=== PATIENT | male | born 1980 | race Caucasian/White ===

== ENCOUNTER 2018-02-07 16:45 | Emergency (ER) | payer SELFPAY ==
[2018-02-07] MEDS ORDERED: TETRACAIN/EPI/LIDO GEL 3ML SYR TP ONE (16:55)
[2018-02-07] MEDS ORDERED: DIPHTH/TETANUS/ACEL. PERTUSSIS IM ONLY ONE (16:55)
--- NOTE | 2018-02-07 17:01 | ER Report ---
History and Physical Time Seen By MD: 16:55 Hx. of Stated Complaint: patient was doing pull-ups in his home. he fell and landed on the top of his head HPI/ROS CHIEF COMPLAINT: laceration to top of head HISTORY OF PRESENT ILLNESS: PT was doing pull ups on a pull up bar that he put into a door frame. The pull up bar and the door frame came down on the patient and he fell onto the ground. Pt with Hematoma and laceration on top of his head. no loc. no headache. Pt does c/o of some soreness to his neck when asked. no arm weakness or numbness. pt ambulatory. pt tetnus shot was 7 yrs ago. REVIEW OF SYSTEMS: Constitutional: No fever, no chills. Eyes: No discharge. ENT: No sore throat. Cardiovascular: No chest pain, no palpitations. Respiratory: No cough, no shortness of breath. Gastrointestinal: No abdominal pain, no vomiting. Genitourinary: No hematuria. Musculoskeletal: No back pain, + neck lateral tenderness Skin: + head lac Neurological: No headache, no numbness, no weakness, no loc Allergies: Coded Allergies: No Known Drug Allergies (Unverified , 02/07/18) Home Meds No Active Prescriptions or Reported Meds Past Medical/Surgical History Pt denies any past medical or surgical hx Reviewed Nurses Notes: Yes Hx Substance Use Disorder: No Hx Alcohol Use: Yes (occ.) Constitutional Vital Sign - Last 24 Hours 02/07/18 02/07/18 02/07/18 02/07/18 16:46 16:50 17:00 17:30 Temp 98.0 Pulse 95 Resp 20 B/P (MAP) 126/94 (105) 126/94 107/72 (84) 110/85 (93) Pulse Ox 95 O2 Delivery Room Air Physical Exam General Appearance: The patient is alert, has no immediate need for airway protection and no signs of toxicity. Eyes: Pupils equal and round no pallor or injection, EOMI ENT: no pharyngeal erythema or exudates, Mucous membranes are moist, TM are nl b/l no hemotympanums Respiratory: There are no retractions, lungs are clear to auscultation. Cardiovascular: Regular rate and rhythm. pulses are equal and symmetrical Gastrointestinal: Abdomen is soft and non tender, no masses, bowel sounds normal, no guarding, no rigidity or rebound Neurological: Cranial nerves II-XII grossly intact, no sensory or motor loss Skin: Warm and dry, + 2cm x 1cm hematoma on top of head with laceration that is starred total of 3cm Musculoskeletal: Neck is non tender midline with some "soreness left lateral with palpation to trapezius, remainder of vertebtral spine also non tender. Extremities are nontender, non swollen and have full range of motion. DIFFERENTIAL DIAGNOSIS: After history and physical exam differential diagnosis was considered for laceration, concussion, cervical strain, muscles strain burst fx Medical Decision Making ED Course/Re-evaluation ED Course Wound was irrigated with NSS LET was applied as topical then 1% lidocaine with epi 2ml Wound closed using surgical garland 7 total Decision to Disposition Date: Feb 07, 2018 Decision to Disposition Time: 17:52 Depart Departure Latest Vital Signs Vital Signs Date Time Temp Pulse Resp B/P (MAP) Pulse Ox O2 Delivery O2 Flow Rate FiO2 02/07/18 17:30 110/85 (93) 02/07/18 16:50 98.0 95 20 95 Room Air Impression: Primary Impression: Laceration of head Condition: Improved Disposition: HOME OR SELF-CARE New Scripts No Active Prescriptions or Reported Meds Patient Instructions: Staple Care (GEN) Additional Instructions: You have 7 garland which need to be removed in 12 days. You can do that at your family doctor, urgent care or the emergency room. Return sooner for any concerns. Your neck xrays did not see any fractures but you do have some arthritis. Motrin/tylenol as needed for pain. Problem Qualifiers Primary Impression: Laceration of head Encounter type: initial encounter Location of open wound of head: scalp Foreign body presence: without foreign body Qualified Codes: S01.01XA - Laceration without foreign body of scalp, initial encounter CHITO LEROY DO Feb 07, 2018 17:00
[2018-02-07 17:30] VITALS: BP 110/85
--- NOTE | 2018-02-07 17:34 | RADIOLOGY IMAGING REPORT ---
FACILITY: [facility] PATIENT NAME: Fabrizio Zaman : 1980 MR: [id number] V: [id number] EXAM DATE: ORDERING PHYSICIAN: CHITO LEROY TECHNOLOGIST: Location: [facility] Patient: Fabrizio Zaman : 1980 Visit/Account:[id number] Date of Sevice: 02/07/2018 EXAMINATION: Cervical spine radiographs 3 views HISTORY: Hit top of his head, neck pain. COMPARISON: None. FINDINGS: AP, lateral and 2 odontoid views of the cervical spine are obtained. Bones: Cervical spine is adequately visualized through the cervicothoracic junction. No acute fractu re or dislocation. Disc spaces: Mild disc space narrowing and endplate sclerosis at C5-6. Posterior elements: Mild uncovertebral and facet hypertrophy at C5-6. Alignment: There is straightening of the cervical spine with grade 1 retrolisthesis at C5-6 measurin g 2 mm. Hardware: None. Soft tissues: Negative. Visualized lung apices: Negative. IMPRESSION: 1. No acute fracture of the cervical spine. 2. Mild degenerative disc disease, facet and uncovertebral arthropathy at C5-6. 3. Grade 1 degenerative retrolisthesis at C5-6. Report Dictated By: Jailene Rangel MD at 02/07/2018 5:29 PM Report E-Signed By: Jailene Rangel MD at 02/07/2018 5:31 PM [id number]
== END 2018-02-07 17:47 | disposition home or self-care (01) ==
LOC: ER 17:02
DX: S01.01XA Laceration without foreign body of scalp, initial encounter (principal)
CPT/HCPCS: 72040; 90471; 90715; 99283

== ENCOUNTER 2018-02-24 15:39 | Emergency (ER) | payer SELFPAY ==
[2018-02-24] MEDS ORDERED: CYCLOBENZAPRINE HCL 10 MG TAB PO ONE (15:50)
[2018-02-24] MEDS ORDERED: KETOROLAC 60 MG/2 ML VIAL IM ONE (15:50)
[2018-02-24] MEDS ORDERED: CYCL10TA29 PO (15:54)
--- NOTE | 2018-02-24 15:55 | ER Report ---
History and Physical Time Seen By MD: 15:51 Hx. of Stated Complaint: Patient aggravated chronic back injury while moving furniture HPI/ROS CHIEF COMPLAINT: Low back strain HISTORY OF PRESENT ILLNESS: 37 male comes emergency with a complaint of low back strain patient states that he was helped moving some furniture and felt a strain in his back patient has a significant history 5 years ago was involved in a work-related injury were significant amounts of steel and iron were against him he had multiple issues with his back neck and legs with resulting sciatica he said he was doing fine back at work however since he had lifted the furniture enough of a strain no urinary bladder bowel incontinence and numbness of subtle paresthesias no additional complaints noted REVIEW OF SYSTEMS: Respiratory: No cough, no dyspnea. Cardiovascular: No chest pain, no palpitations. Gastrointestinal: No vomiting, no abdominal pain. Musculoskeletal: Low back strain Remainder of the 14 system rev: Yes Allergies: Coded Allergies: No Known Drug Allergies (Unverified , 02/07/18) Home Meds No Active Prescriptions or Reported Meds Reviewed Nurses Notes: Yes Old Medical Records Reviewed: Yes Hx Substance Use Disorder: No Hx Alcohol Use: Yes (occ.) Constitutional Vital Sign - Last 24 Hours 02/24/18 15:44 Temp 98.3 Pulse 98 Resp 18 B/P (MAP) 137/89 Pulse Ox 92 O2 Delivery Room Air Physical Exam General appearance: Alert no distress. Respiratory: Chest is non tender, lungs are clear to auscultation. Cardiac: Regular rate and rhythm [ ] Back examination patient was some mild tenderness to the right sided paraspinal muscle patient has full range of motion otherwise unremarkable exam DIFFERENTIAL DIAGNOSIS: After history and physical exam differential diagnosis was considered for low back strain Medical Decision Making ED Course/Re-evaluation ED Course ED clinical course 37-year-old male comes in the department today with a complaint of low back strain patient is a long history of chronic back problems he asked for specifically for anti-inflammatory present narcotics I explained that we cannot give narcotics in the emergency Department for acute pain we will give him an IM Toradol shot some muscle relaxants and a prescription for muscle relaxer and follow up with primary care will refer him also to Dr. Arechiga orthopedic surgery Decision to Disposition Date: Feb 24, 2018 Decision to Disposition Time: 15:53 Depart Departure Latest Vital Signs Vital Signs Date Time Temp Pulse Resp B/P (MAP) Pulse Ox O2 Delivery O2 Flow Rate FiO2 02/24/18 15:44 98.3 98 18 137/89 92 Room Air Impression: Primary Impression: Low back strain Condition: Improved Disposition: HOME OR SELF-CARE Referrals: THEODORE ARECHIGA MD 5 Days New Scripts Cyclobenzaprine Hcl (CYCLOBENZAPRINE HCL) 10 Mg Tablet 10 MG PO TID for 10 Days, #90 TAB Prov: KULDIP DUNAWAY MD 02/24/18 Patient Instructions: Low Back Strain (DC) KULDIP DUNAWAY MD Feb 24, 2018 15:54
[2018-02-24 16:10] VITALS: BP 132/84
== END 2018-02-24 16:09 | disposition home or self-care (01) ==
LOC: ER 15:41
DX: S39.012A Strain of muscle, fascia and tendon of lower back, initial encounter (principal)
CPT/HCPCS: 96372; 99283; J1885

== ENCOUNTER 2018-04-18 19:51 | Emergency (ER) | payer SELFPAY ==
[~2018-04-18 19:51] MED LIST: CYCL10TA29 PO
--- NOTE | 2018-04-18 19:54 | ER Report ---
History and Physical Time Seen By MD: 19:53 HPI/ROS CHIEF COMPLAINT: Right leg swelling HISTORY OF PRESENT ILLNESS: 37-year-old male presents ambulatory to the ER with right leg swelling for 2 days. He thinks or insect bites there as well as his right elbow. There is several pustules. Patient's been sleeping in a tent. He thinks he may have been bitten by insects. She notes no systemic symptoms of fever, chills or body aches. Allergies: Coded Allergies: No Known Drug Allergies (Unverified , 02/24/18) Home Meds Active Scripts Cephalexin Monohydrate (CEPHALEXIN) 500 Mg Cap, 500 MG PO TID for infection, # 30 CAP TAKE 1 CAPSULE BY MOUTH TID Prov:EDIS NICHOLE DO 04/18/18 Sulfamethoxazole/Trimet 800-160 Mg Tab (BACTRIM DS TABLET) 1 Each Tablet, 1 TAB PO Q12H for infection, #20 Prov:EDIS NICHOLE DO 04/18/18 Cyclobenzaprine Hcl (CYCLOBENZAPRINE HCL) 10 Mg Tablet, 10 MG PO TID for 10 Days , #90 TAB Prov:KULDIP DUNAWAY MD 02/24/18 Reviewed Nurses Notes: Yes Old Medical Records Reviewed: Yes Hx Substance Use Disorder: No Hx Alcohol Use: Yes (occ.) Constitutional Vital Sign - Last 24 Hours 04/18/18 20:01 Temp 98.6 Pulse 93 Resp 19 B/P (MAP) 120/87 Pulse Ox 94 O2 Delivery Room Air Physical Exam General appearance: Alert no distress. Vital signs stable, afebrile Respiratory: Chest is non tender, lungs are clear to auscultation. Cardiac: Regular rate and rhythm Extremities: Examination of the right upper extremity reveals several pustules in the olecranon area of the elbow with some surrounding erythema. Examination of the right lower extremity reveals a right lower leg. Distal neurovascular functions intact. There is no calf tenderness or Homans sign to suggest DVT. DIFFERENTIAL DIAGNOSIS: After history and physical exam differential diagnosis was considered for cellulitis, insect bites, allergic reaction, localized reaction. Medical Decision Making ED Course/Re-evaluation ED Course Patient was admitted to an examination room. H&P was done. The differential diagnoses was considered. On clinical examination. Patient with obvious cellulitis. It may be allergic reaction to insect bites. Patient was given a single dose of prednisone 20 mg. He'll be covered with Keflex and Bactrim for cellulitis. He is given initial doses here in the ER since the pharmacies closed. Given prescriptions for 10 day course of each. Patient's advised warm compresses. Patient advised to follow-up in 2 days if unimproved. Decision to Disposition Date: Apr 18, 2018 Decision to Disposition Time: 20:00 Depart Departure Latest Vital Signs Vital Signs Date Time Temp Pulse Resp B/P (MAP) Pulse Ox O2 Delivery O2 Flow Rate FiO2 04/18/18 20:01 98.6 93 19 120/87 94 Room Air Impression: Primary Impression: Cellulitis of right lower leg Additional Impression: Cellulitis of right forearm Condition: Improved Disposition: HOME OR SELF-CARE Referrals: MIRIAM PINK MD, FARRUKH MD New Scripts Cephalexin Monohydrate (CEPHALEXIN) 500 Mg Cap 500 MG PO TID for infection, #30 CAP TAKE 1 CAPSULE BY MOUTH TID Prov: EDIS NICHOLE DO 04/18/18 Sulfamethoxazole/Trimet 800-160 Mg Tab (BACTRIM DS TABLET) 1 Each Tablet 1 TAB PO Q12H for infection, #20 Prov: EDIS NICHOLE DO 04/18/18 Patient Instructions: Cellulitis (ED) Additional Instructions: Take ibuprofen 200 mg 3 tablets 3 times a day with food Apply warm compresses to your leg and arm or a heating pad Follow-up with primary care doctor listed on your paperwork if unimproved in 3- 5 days Problem Qualifiers EDIS NICHOLE DO Apr 18, 2018 19:54
[2018-04-18] MEDS ORDERED: CEPHALEXIN MONO 500 MG CAP PO ONE (20:00)
[2018-04-18] MEDS ORDERED: IBUPROFEN 600 MG TAB PO ONE (20:00)
[2018-04-18] MEDS ORDERED: TRIMETH/SULFA DS 160-800MG TAB PO ONE (20:00)
[2018-04-18 20:01] VITALS: BP 120/87
[2018-04-18] MEDS ORDERED: CEPH500C24 PO (20:03)
[2018-04-18] MEDS ORDERED: SULF-198 PO (20:03)
[2018-04-18] MEDS ORDERED: DEXAMETHASONE 4 MG TAB PO ONE (20:10)
== END 2018-04-18 20:15 | disposition home or self-care (01) ==
LOC: ER 20:04
DX: L03.115 Cellulitis of right lower limb (principal); L03.113 Cellulitis of right upper limb
CPT/HCPCS: 99283; J8540

== ENCOUNTER 2019-01-16 11:06 | Emergency (ER) | payer SELFPAY ==
[~2019-01-16 11:06] MED LIST changes: +CEPH500C24 PO; +SULF-198 PO
[2019-01-16] MEDS ORDERED: methylPREDNIS SUCC 125 MG/2ML IVP ONE (11:10)
[2019-01-16] MEDS ORDERED: FAMOTIDINE(*) 20MG/50ML PREMIX 50 ML IVPB ONE (11:10)
[2019-01-16] MEDS ORDERED: NS(*) 0.9% 1000 ML BAG 1,000 ML IV ONE (11:10)
[2019-01-16] MEDS ORDERED: diphenhydrAMINE 50 MG/ML VIAL IVP ONE (11:10)
[2019-01-16] MEDS ORDERED: EPINEPHrine 0.3 MG SYR IM ONLY ONE (11:10)
--- NOTE | 2019-01-16 11:12 | ER Report ---
History and Physical Time Seen By MD: 11:11 HPI/ROS CHIEF COMPLAINT: Allergic reaction HISTORY OF PRESENT ILLNESS: 38-year-old male patient presents to emergency room with complaint of allergic reaction. 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 He states while he was working that he started having some swelling in his throat. He states he became concerned when he got his and drove into the hospital. In route to the hospital they stated that there were pulled over by police. They're escorted by the police to make sure the [place] safely. Patient states that he is not having shortness breath, but does note that he has swelling in his throat. He is unsure what he was exposed to. REVIEW OF SYSTEMS: Respiratory: No cough, no dyspnea. Cardiovascular: No chest pain, no palpitations. Gastrointestinal: No vomiting, no abdominal pain. Musculoskeletal: No back pain. Allergies: Coded Allergies: No Known Drug Allergies (Unverified , 02/24/18) Home Meds Active Scripts Epinephrine (EPIPEN 2-DIONISIO) 0.3 Mg/0.3 Ml Pen.injctr, 0.3 MG IM ONCE PRN for ALLERGY SYMPTOMS, #2 SYR 1 Refill Prov:PRADEEP SOUZA 01/16/19 Famotidine (PEPCID) 20 Mg Tablet, 20 MG PO QDAY, #14 TAB Prov:PRADEEP SOUZA 01/16/19 Prednisone (PREDNISONE) 20 Mg Tablet, 20 MG PO BID, #10 TAB Prov:PRADEEP SOUZA 01/16/19 Cephalexin Monohydrate (CEPHALEXIN) 500 Mg Cap, 500 MG PO TID for infection, #30 CAP TAKE 1 CAPSULE BY MOUTH TID Prov:EDIS NICHOLE DO 04/18/18 Sulfamethoxazole/Trimet 800-160 Mg Tab (BACTRIM DS TABLET) 1 Each Tablet, 1 TAB PO Q12H for infection, #20 Prov:EDIS NICHOLE DO 04/18/18 Cyclobenzaprine Hcl (CYCLOBENZAPRINE HCL) 10 Mg Tablet, 10 MG PO TID for 10 Days, #90 TAB Prov:KULDIP DUNAWAY MD 02/24/18 Past Medical/Surgical History Patient has a past medical history of alcohol use. Patient denies any surgical history. Reviewed Nurses Notes: Yes Hx Substance Use Disorder: No Hx Alcohol Use: Yes (occ.) Constitutional Vital Sign - Last 24 Hours 01/16/19 01/16/19 01/16/19 01/16/19 11:06 11:08 11:09 11:15 Temp 98.2 Pulse 100 101 Resp 18 B/P (MAP) 142/82 142/82 (102) 141/84 (103) Pulse Ox 99 O2 Delivery Nasal Cannula 01/16/19 01/16/19 01/16/19 11:16 11:23 11:26 Pulse 102 96 Resp 26 20 Pulse Ox 99 100 O2 Flow Rate 2.0 Physical Exam General Appearance: The patient is alert, has no immediate need for airway protection and no current signs of toxicity. ENT: Patient does have significant edema to the posterior pharynx, especially around the uvula. Respiratory: Chest is non tender, lungs are clear to auscultation. Cardiac: regular rate and rhythm Gastrointestinal: Abdomen is soft and non tender, no masses, bowel sounds normal. Musculoskeletal: Neck: Neck is supple and non tender. Extremities have full range of motion and are non tender. Skin: No rashes or lesions. DIFFERENTIAL DIAGNOSIS: After history and physical exam differential diagnosis was considered for allergic reaction. Medical Decision Making Data Points Result Diagram: 01/16/19 1109 01/16/19 1109 Laboratory Hematology Test 01/16/19 11:09 Red Blood Count 4.98 M/uL (4.00-5.60) Mean Corpuscular Volume 89.5 fL (80.0-96.0) Mean Corpuscular Hemoglobin 30.5 pg (26.0-33.0) Mean Corpuscular Hemoglobin Concent 34.1 g/dL (32.0-36.0) Red Cell Distribution Width 13.4 % (11.5-14.5) Mean Platelet Volume 7.3 fL (7.2-11.1) Neutrophils (%) (Auto) 73.6 % (39.4-72.5) Lymphocytes (%) (Auto) 18.5 % (17.6-49.6) Monocytes (%) (Auto) 6.6 % (4.1-12.4) Eosinophils (%) (Auto) 0.3 % (0.4-6.7) Basophils (%) (Auto) 1.0 % (0.3-1.4) Nucleated RBC Relative Count (auto) 0.0 /100WBC Neutrophils # (Auto) 6.9 K/uL (2.0-7.4) Lymphocytes # (Auto) 1.7 K/uL (1.3-3.6) Monocytes # (Auto) 0.6 K/uL (0.3-1.0) Eosinophils # (Auto) 0.0 K/uL (0.0-0.5) Basophils # (Auto) 0.1 K/uL (0.0-0.1) Nucleated RBC Absolute Count (auto) 0.00 K/uL Sodium Level 138 mmol/L (137-145) Potassium Level 4.5 mmol/L (3.5-5.0) Chloride Level 103 mmol/L (98-107) Carbon Dioxide Level 27 mmol/L (22-30) Blood Urea Nitrogen 23 mg/dl (9-21) Creatinine 1.10 mg/dl (0.66-1.25) Glomerular Filtration Rate Calc > 60.0 Random Glucose 88 mg/dl (75-110) Calcium Level 9.5 mg/dl (8.4-10.2) Total Bilirubin 0.2 mg/dl (0.2-1.3) Aspartate Amino Transf (AST/SGOT) 32 U/L (0-35) Alanine Aminotransferase (ALT/SGPT) 60 U/L (0-56) Alkaline Phosphatase 85 U/L (0-126) C-Reactive Protein < 0.5 mg/dl (<1.0) Total Protein 7.8 g/dl (6.3-8.2) Albumin 4.6 g/dl (3.5-5.0) Chemistry Test 01/16/19 11:09 White Blood Count 9.4 k/uL (4.5-11.0) Red Blood Count 4.98 M/uL (4.00-5.60) Hemoglobin 15.2 g/dL (14.0-18.0) Hematocrit 44.6 % (42.0-52.0) Mean Corpuscular Volume 89.5 fL (80.0-96.0) Mean Corpuscular Hemoglobin 30.5 pg (26.0-33.0) Mean Corpuscular Hemoglobin Concent 34.1 g/dL (32.0-36.0) Red Cell Distribution Width 13.4 % (11.5-14.5) Platelet Count 244 K/uL (150-450) Mean Platelet Volume 7.3 fL (7.2-11.1) Neutrophils (%) (Auto) 73.6 % (39.4-72.5) Lymphocytes (%) (Auto) 18.5 % (17.6-49.6) Monocytes (%) (Auto) 6.6 % (4.1-12.4) Eosinophils (%) (Auto) 0.3 % (0.4-6.7) Basophils (%) (Auto) 1.0 % (0.3-1.4) Nucleated RBC Relative Count (auto) 0.0 /100WBC Neutrophils # (Auto) 6.9 K/uL (2.0-7.4) Lymphocytes # (Auto) 1.7 K/uL (1.3-3.6) Monocytes # (Auto) 0.6 K/uL (0.3-1.0) Eosinophils # (Auto) 0.0 K/uL (0.0-0.5) Basophils # (Auto) 0.1 K/uL (0.0-0.1) Nucleated RBC Absolute Count (auto) 0.00 K/uL Glomerular Filtration Rate Calc > 60.0 Calcium Level 9.5 mg/dl (8.4-10.2) Total Bilirubin 0.2 mg/dl (0.2-1.3) Aspartate Amino Transf (AST/SGOT) 32 U/L (0-35) Alanine Aminotransferase (ALT/SGPT) 60 U/L (0-56) Alkaline Phosphatase 85 U/L (0-126) C-Reactive Protein < 0.5 mg/dl (<1.0) Total Protein 7.8 g/dl (6.3-8.2) Albumin 4.6 g/dl (3.5-5.0) ED Course/Re-evaluation ED Course Patient was admitted to an exam room, history and physical were obtained. Differential diagnoses were considered. On examination lungs are clear, heart was regular, abdomen was soft nontender. Patient did have significant edema to the posterior pharynx especially around the uvula. Patient was treated with an EpiPen, 125 mg of Solu-Medrol, 20 mg of Pepcid and 50 mg of Benadryl. On reevaluation patient seemed to be having improvement in the edema around the uvula. Lungs remained clear. Lab work was done which showed no acute findings. We continue to monitor the patient for approximately an hour. At which time the uvula had gone down considerably in size. He did have some bright red appearance to the distal end of the uvula. I do wonder there was perhaps a ruptured blood vessel secondary to the edema. Patient is breathing better, he says that he is able to talk better. We will go ahead and discharge patient home at this time. The patient was given a prescription for prednisone, Pepcid and an EpiPen. I discussed findings with patient and his and they verbalized understanding and agreement with plan. Decision to Disposition Date: January 16, 2019 Decision to Disposition Time: 12:07 Depart Departure Latest Vital Signs Vital Signs Date Time Temp Pulse Resp B/P (MAP) Pulse Ox O2 Delivery O2 Flow Rate FiO2 01/16/19 11:26 96 20 100 01/16/19 11:23 2.0 01/16/19 11:15 141/84 (103) 01/16/19 11:08 98.2 Nasal Cannula Impression: Primary Impression: Allergic reaction Condition: Improved Disposition: HOME OR SELF-CARE Referrals: MICHAEL CHURCHILL JR, MD New Scripts Epinephrine (EPIPEN 2-DIONISIO) 0.3 Mg/0.3 Ml Pen.injctr 0.3 MG IM ONCE PRN for ALLERGY SYMPTOMS, #2 SYR 1 Refill Prov: PRADEEP SOUZA 01/16/19 Famotidine (PEPCID) 20 Mg Tablet 20 MG PO QDAY, #14 TAB Prov: PRADEEP SOUZA 01/16/19 Prednisone (PREDNISONE) 20 Mg Tablet 20 MG PO BID, #10 TAB Prov: PRADEEP SOUZA 01/16/19 Patient Instructions: General Allergic Reaction (ED) Additional Instructions: Increase fluid intake. Follow up with Dr. Churchill for allergy testing. Return to the ER if condition worsens. Monitor for possible allergens. Get plenty of rest. Follow up with your primary care provider in the next week. Problem Qualifiers Primary Impression: Allergic reaction Encounter type: initial encounter Qualified Codes: T78.40XA - Allergy, unspecified, initial encounter PRADEEP SOUZA January 16, 2019 11:12
[2019-01-16 11:15] VITALS: BP 141/84
[2019-01-16 11:21] LABS: PLATELET COUNT, AUTOMATED 244 K/uL (150-450)
[2019-01-16] MEDS ORDERED: EPIN0.3P15 IM (12:01)
[2019-01-16] MEDS ORDERED: PRED20TA6 PO (12:01)
[2019-01-16] MEDS ORDERED: FAMO20TA28 PO (12:01)
== END 2019-01-16 12:19 | disposition home or self-care (01) ==
LOC: ER 11:35
DX: T78.40XA Allergy, unspecified, initial encounter (principal)
CPT/HCPCS: 85025; 86140; 96365; 96372; 96375; 99284; J0171; J1200; J2930; J7030; 82040; 82247; 82310; 82374; 82435; 82565; 82947; 84075; 84132; 84155; 84295; 84450; 84460; 84520